=== PATIENT | female | born 1995 | race Caucasian/White ===

== ENCOUNTER 2017-05-04 09:25 | Emergency (ER) | payer OTHER ==
[2017-05-04] MEDS ORDERED: predniSONE 20 MG TABLET PO STA (09:56)
[2017-05-04] MEDS ORDERED: ALBUTEROL NEB 2.5 MG/3 ML INH STA (09:57)
--- NOTE | 2017-05-04 09:59 | ED Physician Documentation ---
History of Present Illness - Stated complaint Stated Complaint: SOA/CONGESTION - Chief complaint Chief Complaint: Resp - Additonal information Additional information: hx from pt 21 f asthjmatic was sick with URI sx a week or two ago got better now severe cough and soa not relieved by freq MDI use does not have a spacer no fever chills mylagias post tussive emesis no travel no leg edema sick contacts at school denies preg Review of Systems Constitutional: denies: Fever, Chills, Myalgias Respiratory: reports: Dyspnea, Cough, Wheezing GI: reports: Vomiting (post tussive) : denies: Now EGA (denies) Endocrine: denies: Easy bruising / bleeding Immunocompromised: denies: Immunocompromised PD PAST MEDICAL HISTORY - Past Medical History Past Medical History: Yes Cardiovascular: None Respiratory: Asthma Neuro: None Endocrine/Autoimmune: None GI: None 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 : None HEENT: None Psych: None Musculoskeletal: None Derm: None - Past Surgical History Past Surgical History: Yes HEENT: Myringotomy (tubes) - Present Medications Home Medications: Ambulatory Orders Medication Instructions Recorded Confirmed Albuterol 1 puffs PO Q4H 11/12/15 05/04/17 Norgestimate-Ethinyl Estradiol 1 tab PO DAILY 11/12/15 05/04/17 [Trinessa Lo Tablet] Benzonatate [Tessalon] 100 mg PO TID PRN #20 capsule 05/04/17 Clobetasol Propionate/Emoll 1 applic TD PRN PRN 05/04/17 05/04/17 [Clobetasol Emollient 0.05% Crm] Triamcinolone 0.5% Cream [Kenalog 15 applic TOP PRN PRN 05/04/17 05/04/17 0.5% Cream] guaiFENesin/DEXTROMETHORPHAN 10 ml PO Q6H PRN #120 ml 05/04/17 [Robitussin Dm] predniSONE [Deltasone] 60 mg PO DAILY 5 Days tablet 05/04/17 - Allergies Allergies/Adverse Reactions: Allergies Allergy/AdvReac Type Severity Reaction Status Date / Time No Known Drug Allergies Allergy Verified 05/04/17 09:40 - Social History Does the pt smoke?: No Smoking Status: Never smoker Does the pt drink ETOH?: No Does the pt have substance abuse?: No - Immunizations Immunizations are current?: Yes PD ED PE NORMAL - Vitals Vital signs reviewed: Yes - General General: Alert and oriented X 3 - HEENT HEENT: PERRL, Ears normal, Moist mucous membranes, Pharynx benign - Neck Neck: Supple, no meningeal sign - Cardiac Cardiac: RRR - Respiratory Respiratory: Other (decreased oneyda) - Abdomen Abdomen: Soft, Non tender - Derm Derm: Normal color - Extremities Extremities: No edema - Neuro Neuro: Alert and oriented X 3 - Psych Psych: Normal mood Results - Vitals Vitals: Vital Signs - 24 hr 05/04/17 05/04/17 09:31 10:21 Temperature 36.5 C Heart Rate 99 85 Respiratory 16 16 Rate Blood Pressure 124/87 H O2 Saturation 95 Oxygen O2 Source Room air - Labs Labs: Laboratory Tests 05/04/17 09:55 Influenza A (Rapid) Negative Influenza B (Rapid) Negative Influenza Types A,B Ag - - Rads (name of study) CXR Radiology: See rad report (neg) PD MEDICAL DECISION MAKING - ED course ED course: neg CXR neg flu will dc with spacer to assist MDI, steroids, tessalon and lily DM Departure - Departure Disposition: 01 Home, Self Care Clinical Impression: Bronchitis Asthma Qualifiers: Asthma severity: unspecified severity Asthma persistence: unspecified Asthma complication type: with acute exacerbation Qualified Code(s): J45.901 - Unspecified asthma with (acute) exacerbation Condition: Good Instructions: INHALER, Bronchodilator, ED Bronchitis Asthmatic Follow-Up: ARETHA HENSON [Primary Care Provider] - Prescriptions: Benzonatate [Tessalon] 100 mg PO TID PRN #20 capsule PRN Reason: to ease cough guaiFENesin/DEXTROMETHORPHAN [Robitussin Dm] 10 ml PO Q6H PRN #120 ml PRN Reason: Cough predniSONE [Deltasone] 60 mg PO DAILY 5 Days tablet Comments: The chest xray did not show pneumonia And the influenza test was negative So you don't need antibiotics or tamiflu But I did prescribed steroids to help ease your asthma as well as cough medications. Please use the spacer with your inhaler - it will help get more medication into your lungs Forms: Activity restrictions
[2017-05-04] MEDS ORDERED: ALBUTEROL NEB 2.5 MG/3 ML INH ONE (10:13)
[2017-05-04] MEDS ORDERED: predniSONE 20 MG TABLET ONE ×2 (10:18→10:34)
--- NOTE | 2017-05-04 10:20 | XRAY Preliminary Report ---
Exam: XR Chest 2 View PA/LAT IMPRESSION: No acute radiographic cardiopulmonary process [facility] SITE ID: [id number]
--- NOTE | 2017-05-04 10:23 | XRAY Report ---
EXAM: CHEST RADIOGRAPHY EXAM DATE: 05/04/2017 09:59 AM. CLINICAL HISTORY: Cough soa. COMPARISON: Chest radiograph 09/20/2014. TECHNIQUE: 2 views. FINDINGS: Lungs/Pleura: No focal opacities evident. No pleural effusion. No pneumothorax. Normal volumes. Mediastinum: Stable Other: None. IMPRESSION: No acute radiographic cardiopulmonary process [facility] Referring Provider Line: [phone] SITE ID: [id number]
[2017-05-04 11:14] VITALS: BP 143/84
== END 2017-05-04 11:28 | disposition home or self-care (01) ==
LOC: ED 09:25
DX: J45.901 Unspecified asthma with (acute) exacerbation (principal)
CPT/HCPCS: 71020; 87275; 87276; 94640; 94664; 99283; J7512; J7613

== ENCOUNTER 2020-04-14 08:43 | Emergency (ER) | payer BC, OTHER ==
[2020-04-14] MEDS ORDERED: PROPARACAINE 0.5% OPHTH DROPS 15 ML LEFTEYE STA (09:28)
--- NOTE | 2020-04-14 10:41 | ED Physician Documentation ---
History of Present Illness - Stated complaint Stated Complaint: LT EYE PAIN - Chief complaint Chief Complaint: Heent - History obtained from History obtained from: Patient - Additonal information Additional information: Patient comes emergency department complaining of left eye pain for the last several days. She states she wears contacts which are changed out monthly, but that the smoke is really been bothering her eyes. She states she actually did not wear her contacts for a few days, but then put them in yesterday while at work. She states she began to have pain in her left eye that just got worse and worse and that she finally had to take the contact lenses out. She has noticed redness and slight bit of mucus and some extra tearing, but no purulent drainage. She states her vision is somewhat blurred compared to the right side. Patient states she has had many eye infections since she is worn contacts and that this is similar. No other complaints at this time. No trauma. No history of glaucoma. Review of Systems Ten Systems: 10 systems reviewed and negative Constitutional: reports: Reviewed and negative Eyes: reports: Photophobia, Discharge, Irritation, Other (Blurred vision left eye) Ears: reports: Reviewed and negative Nose: reports: Reviewed and negative Throat: reports: Reviewed and negative Cardiac: reports: Reviewed and negative Respiratory: reports: Reviewed and negative GI: reports: Reviewed and negative : reports: Reviewed and negative Skin: reports: Reviewed and negative Musculoskeletal: reports: Reviewed and negative Neurologic: reports: Reviewed and negative Psychiatric: reports: Reviewed and negative Endocrine: reports: Reviewed and negative Immunocompromised: reports: Reviewed and negative PD PAST MEDICAL HISTORY - Past Medical History Past Medical History: Yes Cardiovascular: None Respiratory: Asthma Endocrine/Autoimmune: None GI: None 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 : None HEENT: None Psych: None Musculoskeletal: None Derm: None - Past Surgical History Past Surgical History: Yes HEENT: Myringotomy (tubes) - Present Medications Home Medications: Ambulatory Orders Medication Instructions Recorded Confirmed Albuterol 1 puffs PO Q4H 11/12/15 05/04/17 Norgestimate-Ethinyl Estradiol 1 tab PO DAILY 11/12/15 05/04/17 [Trinessa Lo Tablet] Albuterol Sulfate [Proair Hfa 2 puffs INH Q4H PRN #1 inhaler 05/04/17 Inhaler] Benzonatate [Tessalon] 100 mg PO TID PRN #20 capsule 05/04/17 Clobetasol Propionate/Emoll 1 applic TD PRN PRN 05/04/17 05/04/17 [Clobetasol Emollient 0.05% Crm] Triamcinolone 0.5% Cream [Kenalog 15 applic TOP PRN PRN 05/04/17 05/04/17 0.5% Cream] guaiFENesin/DEXTROMETHORPHAN 10 ml PO Q6H PRN #120 ml 05/04/17 [Robitussin Dm] predniSONE [Deltasone] 60 mg PO DAILY 5 Days tablet 05/04/17 Gentamicin 0.3% Ophth Drops 5 ml OP TID 7 Days #1 bottle 04/14/20 [Garamycin] - Allergies Allergies/Adverse Reactions: Allergies Allergy/AdvReac Type Severity Reaction Status Date / Time plastic bandaids Allergy Unknown Uncoded 04/14/20 09:01 - Social History Does the pt smoke?: No Smoking Status: Never smoker Does the pt drink ETOH?: No Does the pt have substance abuse?: Yes Substance Use and Type: Marijuana - Immunizations Immunizations are current?: Yes PD ED PE NORMAL - Vitals Vital signs reviewed: Yes - General General: Alert and oriented X 3, No acute distress - HEENT HEENT: Atraumatic, PERRL, EOMI, Moist mucous membranes, Other (Conjunctival injection left eye. Fluorescein exam reveals no corneal defects.) - Neck Neck: Supple, no meningeal sign - Respiratory Respiratory: No respiratory distress - Derm Derm: Warm and dry - Extremities Extremities: No deformity - Neuro Neuro: Alert and oriented X 3 - Psych Psych: Normal mood, Normal affect Results - Vitals Vitals: Vital Signs - 24 hr 04/14/20 08:51 Temperature 36.4 C L Heart Rate 63 Respiratory 16 Rate Blood Pressure 149/82 H O2 Saturation 98 Oxygen O2 Source Room air PD MEDICAL DECISION MAKING - ED course Complexity details: considered differential, d/w patient ED course: I discussed with the patient that her symptoms and findings are consistent with cocked contact lens related conjunctivitis. As such, the patient will need to get rid of the left contact and get a new pair. She will also need to be on topical antibiotics. 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 Please take the antibiotics as directed, until gone. Do not use contact lenses until your eye is completely back to normal
[2020-04-14 10:58] VITALS: BP 138/85
== END 2020-04-14 10:58 | disposition home or self-care (01) ==
LOC: ED 08:43
DX: H10.32 Unspecified acute conjunctivitis, left eye (principal)
CPT/HCPCS: 99282; 99284; J3490

== ENCOUNTER 2020-04-21 08:21 | Outpatient (CLI) | payer BC | END 2020-04-21 08:22 | disposition critical access hospital (66) | LOC: EMS 08:21 | PROVIDERS: ATTEND Surgery | DX: R55 Syncope and collapse (principal); R51 Headache; R11.0 Nausea | CPT/HCPCS: A0425; A0429 ==

== ENCOUNTER 2020-04-21 08:59 | Emergency (ER) | payer OTHER, BC ==
--- NOTE | 2020-04-21 09:11 | ED Physician Documentation ---
PD HPI SYNCOPE - Stated complaint Stated Complaint: GLF - Chief complaint Chief Complaint: Neuro - History obtained from History obtained from: Patient - History of Present Illness Witnessed: Witnessed Timing - onset: Today Duration: Seconds (10) Preceding symptoms: Other (dizziness) Associated symptoms: Headache, Nausea / vomiting Contributing factors: Decreased PO intake Injury occurred: Fell, Head injury. 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 She vomited 5 times following that and she is brought to the hospital by ambulance. She denies any specific weakness or numbness. Review of Systems Constitutional: denies: Fever, Chills, Myalgias Eyes: denies: Decreased vision Ears: denies: Ear pain Nose: denies: Rhinorrhea / runny nose, Congestion Throat: denies: Sore throat Cardiac: denies: Chest pain / pressure, Palpitations Respiratory: denies: Dyspnea, Cough GI: reports: Nausea, Vomiting. denies: Abdominal Pain : denies: Dysuria, Frequency Skin: denies: Rash Musculoskeletal: denies: Neck pain, Back pain, Extremity pain Neurologic: reports: Syncope, Headache, Head injury, LOC. 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 : None HEENT: None Psych: None Musculoskeletal: None Derm: None - Past Surgical History Past Surgical History: Yes HEENT: Myringotomy (tubes) - Present Medications Home Medications: Ambulatory Orders Medication Instructions Recorded Confirmed Multivitamin [Multiple Vitamins] 1 each PO 04/21/20 - Allergies Allergies/Adverse Reactions: Allergies Allergy/AdvReac Type Severity Reaction Status Date / Time plastic bandaids Allergy Unknown Uncoded 04/21/20 09:05 - Social History Does the pt smoke?: No Smoking Status: Never smoker Does the pt drink ETOH?: No Does the pt have substance abuse?: No - Immunizations Immunizations are current?: Yes PD ED PE NORMAL - Vitals Vital signs reviewed: Yes (hypertensive ) - General General: Alert and oriented X 3, No acute distress, Well developed/nourished - HEENT HEENT: PERRL, EOMI, Ears normal, Other (There is tenderness to the occiput on the left mild without crepitance or stepoff) - Neck Neck: Supple, no meningeal sign, No bony TTP - Cardiac Cardiac: RRR, No murmur - Respiratory Respiratory: No respiratory distress, Clear bilaterally - Abdomen Abdomen: Normal bowel sounds, Soft, Non tender, Non distended, No organomegaly - Back Back: No CVA TTP, No spinal TTP - Derm Derm: Normal color, Warm and dry, No rash - Extremities Extremities: No deformity, No edema - Neuro Neuro: Alert and oriented X 3, wholesale manager 2-12 intact, No motor deficit, No sensory deficit, Normal speech Eye Opening: Spontaneous Motor: Obeys Commands Verbal: Oriented GCS Score: 15 - Psych Psych: Normal mood, Normal affect Results - Vitals Vitals: Vital Signs - 24 hr 04/21/20 04/21/20 04/21/20 09:02 09:05 09:25 Temperature 36.5 C Heart Rate 60 65 64 Respiratory 18 16 16 Rate Blood Pressure 141/106 H 137/93 H 137/93 H O2 Saturation 99 99 99 04/21/20 04/21/20 04/21/20 09:35 10:30 11:00 Temperature Heart Rate 65 64 60 Respiratory 16 21 18 Rate Blood Pressure 118/83 H 113/87 H 126/78 O2 Saturation 99 100 98 04/21/20 04/21/20 11:30 12:51 Temperature 37.1 C Heart Rate 68 73 Respiratory 17 18 Rate Blood Pressure 126/78 131/85 H O2 Saturation 99 100 Oxygen O2 Source Room air - EKG (time done) 0909 Rate: Rate (enter#) (55) Rhythm: NSR QRS: LVH Compare to prior EKG: Changed from prior EKG (SPT 09-20-2014 the repolarization abnormality seen previously is now resolved. ) Computer interpretation: Agree with computer - Labs Labs: Laboratory Tests 04/21/20 04/21/20 04/21/20 09:16 09:16 09:16 WBC 5.8 RBC 3.93 L Hgb 11.9 L Hct 35.6 L MCV 90.6 MCH 30.3 MCHC 33.4 RDW 13.3 Plt Count 210 MPV 10.0 Neut # (Auto) 3.0 Lymph # (Auto) 2.0 Teller # (Auto) 0.4 Eos # (Auto) 0.4 Baso # (Auto) 0.1 Absolute Nucleated RBC 0.00 Nucleated RBC % 0.0 D-Dimer Sodium 137 Potassium 4.0 Chloride 104 Carbon Dioxide 25 Anion Gap 8.0 BUN 9 Creatinine 0.5 Estimated GFR (MDRD) 150 Glucose 94 Calcium 9.0 Total Bilirubin 1.0 AST 19 ALT 14 Alkaline Phosphatase 52 Troponin I High Sens < 2.3 L Total Protein 7.1 Albumin 4.1 Globulin 3.0 Albumin/Globulin Ratio 1.4 Lipase 24 Urine Color Urine Clarity Urine pH Ur Specific Rusk Urine Protein Urine Glucose (UA) Urine Ketones Urine Occult Blood Urine Nitrite Urine Bilirubin Urine Urobilinogen Ur Leukocyte Esterase Ur Microscopic Review Urine Culture Comments Urine HCG, Qual 04/21/20 04/21/20 04/21/20 09:16 10:30 10:30 WBC RBC Hgb Hct MCV MCH MCHC RDW Plt Count MPV Neut # (Auto) Lymph # (Auto) Teller # (Auto) Eos # (Auto) Baso # (Auto) Absolute Nucleated RBC Nucleated RBC % D-Dimer 221.9 Sodium Potassium Chloride Carbon Dioxide Anion Gap BUN Creatinine Estimated GFR (MDRD) Glucose Calcium Total Bilirubin AST ALT Alkaline Phosphatase Troponin I High Sens Total Protein Albumin Globulin Albumin/Globulin Ratio Lipase Urine Color YELLOW Urine Clarity CLEAR Urine pH 6.0 Ur Specific [place] 1.025 1.025 Urine Protein NEGATIVE Urine Glucose (UA) NEGATIVE Urine Ketones 15 H Urine Occult Blood NEGATIVE Urine Nitrite NEGATIVE Urine Bilirubin NEGATIVE Urine Urobilinogen 0.2 (NORMAL) Ur Leukocyte Esterase NEGATIVE Ur Microscopic Review NOT INDICATED Urine Culture Comments NOT INDICATED Urine HCG, Qual NEGATIVE - Rads (name of study) CT head without Radiology: Prelim report reviewed (Impression: No acute finding.), EMP read indepedently, See rad report X-ray Radiology: Prelim report reviewed (Impression: No acute cardiopulmonary pathology.), EMP read indepedently, See rad report Procedures - IVC sono (time) 0910 Bedside IVC sono: IVC measures (cm) (1.77), Euvolemia PD MEDICAL DECISION MAKING - ED course Complexity details: reviewed results, re-evaluated patient, considered differential, d/w patient ED course: 24-year-old female with a syncopal episode at work today has fallen and hit her head had some nausea and vomiting associated with concussion. She is has a negative test her blood work urinalysis are all unremarkable CT scan of the head is unremarkable electrocardiogram shows sinus rhythm and normal intervals. Departure - Departure Disposition: 01 Home, Self Care Clinical Impression: Syncope Qualifiers: Syncope type: unspecified Qualified Code(s): R55 - Syncope and collapse Concussion Qualifiers: Encounter type: initial encounter Loss of consciousness presence/duration: with LOC of 30 min or less Qualified Code(s): S06.0X1A - Concussion with loss of consciousness of 30 minutes or less, initial encounter Condition: Stable Instructions: ED Concussion, ED Syncope Vasovagal Follow-Up: [facility] [Provider Group] Forms: Activity restrictions Discharge Date/Time: 04/21/20 13:15
[2020-04-21 09:27] LABS: BASOPHILS # (AUTO) 0.1 10^3/uL (0.0-0.1); BASOPHILS % (AUTO) 0.9 %; EOSINOPHILS # (AUTO) 0.4 10^3/uL (0.0-0.7); EOSINOPHILS % (AUTO) 7.4 %; HGB - HEMOGLOBIN 11.9 g/dL (12.0-16.0); LYMPHOCYTES % (AUTO) 33.7 %; MEAN CORPUSCULAR HEMOGLOBIN 30.3 pg (27.0-31.0); MEAN CORPUSCULAR HGB CONC 33.4 g/dL (32.0-36.0); MEAN CORPUSCULAR VOLUME 90.6 fL (81.0-99.0); MONOCYTES # (AUTO) 0.4 10^3/uL (0.0-1.0); MONOCYTES % (AUTO) 6.7 %; NEUTROPHILS % (AUTO) 51.1 %; PLT - PLATELET COUNT 210 10^3/uL (130-450); RED BLOOD COUNT 3.93 10^6/uL (4.20-5.40); RED CELL DISTRIBUTION WIDTH 13.3 % (12.0-15.0); WHITE BLOOD COUNT 5.8 x10^3/uL (4.8-10.8)
[2020-04-21 09:41] LABS: ALBUMIN 4.1 g/dL (3.2-5.5); ALBUMIN/GLOBULIN RATIO 1.4 (1.0-2.2); CREATININE 0.5 mg/dL (0.4-1.0); TOTAL PROTEIN 7.1 g/dL (6.7-8.2)
--- NOTE | 2020-04-21 09:47 | XRAY Report ---
PROCEDURE: Chest 1 View X-Ray INDICATIONS: syncope TECHNIQUE: One view of the chest was acquired. COMPARISON: 05/04/2017 FINDINGS: Surgical changes and devices: None. Lungs and pleura: No pleural effusions or pneumothorax. Lungs are clear. Mediastinum: Mediastinal contours appear normal. Heart size is normal. Bones and chest wall: No suspicious bony lesions. Overlying soft tissues appear unremarkable. IMPRESSION: No acute cardiopulmonary pathology. Reviewed by: Patrick Watson MD on 04/21/2020 9:46 AM PDT Approved by: Patrick Watson MD on 04/21/2020 9:46 AM PDT Station ID: [id number]
--- NOTE | 2020-04-21 10:16 | CT Report ---
PROCEDURE: HEAD WO INDICATIONS: Syncope, concussion, vomiting TECHNIQUE: Noncontrast 4.5 mm thick angled axial sections acquired from the foramen magnum to the vertex. For r adiation dose reduction, the following was used: automated exposure control, adjustment of mA and/or kV according to patient size. COMPARISON: None. FINDINGS: Image quality: Excellent. CSF spaces: Basal cisterns are patent. No extra-axial fluid collections. Ventricles are normal in size and shape. Brain: No midline shift. No intracranial masses or hemorrhage. Colon-white matter interface is norm al. Skull and face: Calvarium and visualized facial bones are intact, without suspicious lesions. Sinuses: Visualized sinuses and mastoids are clear. IMPRESSION: No acute finding. Reviewed by: Cristian Tiwari MD on 04/21/2020 10:15 AM PDT Approved by: Cristian Tiwari MD on 04/21/2020 10:15 AM PDT Station ID: [id number]
[2020-04-21 10:37] LABS: BILIRUBIN,URINE NEGATIVE (NEGATIVE); GLUCOSE, URINE (UA) NEGATIVE (NEGATIVE); KETONES,URINE (UA) 15 mg/dL (NEGATIVE); LEUKOCYTE ESTERASE, URINE NEGATIVE (NEGATIVE); NITRITE,URINE NEGATIVE (NEGATIVE); OCCULT BLOOD,URINE NEGATIVE (NEGATIVE); PROTEIN,URINE NEGATIVE (NEGATIVE); UROBILINOGEN,URINE 0.2 (NORMAL) E.U./dL (NORMAL)
[2020-04-21 10:42] LABS: CLARITY,URINE CLEAR (CLEAR)
[2020-04-21 10:43] LABS: HCG UR QUAL NEGATIVE
[2020-04-21 12:52] VITALS: BP 131/85
== END 2020-04-21 13:15 | disposition home or self-care (01) ==
LOC: ED 08:59
DX: R55 Syncope and collapse (principal); S06.0X1A Concussion with loss of consciousness of 30 minutes or less, initial encounter; W18.30XA Fall on same level, unspecified, initial encounter; Y93.G9 Activity, other involving cooking and grilling; Y99.0 Civilian activity done for income or pay
CPT/HCPCS: 1040M; 36415; 70450; 71045; 80053; 81001; 81003; 81025; 83690; 84484; 85025; 85379; 87086; 93005; 99284

== ENCOUNTER 2022-10-14 09:15 | Emergency (ER) | payer BC ==
--- NOTE | 2022-10-14 09:32 | ED Physician Documentation ---
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 [place] okay yesterday with normal intake. Has had mild congesiton/cough fro couple of days. Presumes head cold. Had still been taking food/fluids and normal activity.), Just stood up Injury occurred: Head injury. No: Neck injury, Bit tongue Similar symptoms before: Has not had sx before Recently seen: Not recently seen Review of Systems Constitutional: denies: Fever, Chills Eyes: denies: Loss of vision, Photophobia Nose: reports: Rhinorrhea / runny nose, Congestion Throat: denies: Sore throat Respiratory: reports: Cough Skin: reports: Laceration (s) Musculoskeletal: denies: Neck pain, Back pain Neurologic: reports: Headache (after falling). denies: Focal weakness, Numbness, Altered mental status PD PAST MEDICAL HISTORY - Past Medical History Cardiovascular: None Respiratory: Asthma Neuro: None Endocrine/Autoimmune: None GI: None [employer]: None : None HEENT: None Psych: None Musculoskeletal: None Derm: None - Past Surgical History Past Surgical History: Yes HEENT: Myringotomy (tubes) - Present Medications Home Medications: Ambulatory Orders Medication Instructions Recorded Confirmed Multivitamin [Multiple Vitamins] 1 each PO 04/21/20 - Allergies Allergies/Adverse Reactions: Allergies Allergy/AdvReac Type Severity Reaction Status Date / Time plastic bandaids Allergy Unknown Uncoded 10/14/22 09:24 - Social History Does the pt smoke?: No Smoking Status: Never smoker Does the pt drink ETOH?: No Does the pt have substance abuse?: No - Immunizations Immunizations are current?: Yes PD ED PE NORMAL - Vitals Vital signs reviewed: Yes - General General: Alert and oriented X 3, No acute distress, Well developed/nourished - HEENT HEENT: No: Atraumatic (3 cm laceration with minimal bleeding now. No FB. Edges are crisply demarcated. 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 operator 2-12 intact, No motor deficit, Normal speech Eye Opening: Spontaneous Motor: Obeys Commands Verbal: Oriented GCS Score: 15 Results - Vitals Vitals: Vital Signs - 24 hr 10/14/22 10/14/22 10/14/22 09:19 09:40 10:48 Temperature 36.6 C Heart Rate 68 74 70 Respiratory 16 18 18 Rate Blood Pressure 135/100 H 143/97 H 135/75 H O2 Saturation 97 99 99 10/14/22 11:12 Temperature Heart Rate 65 Respiratory 18 Rate Blood Pressure 135/90 H O2 Saturation 98 Oxygen O2 Source Room air - Tele (time rhythm occurred) heart monitor in ER Telemetry / rhythm strip: Rate (68), NSR - Labs Labs: Laboratory Tests 10/14/22 10/14/22 10/14/22 10:01 10:01 10:01 WBC 5.6 RBC 3.92 L Hgb 11.2 L Hct 35.1 L MCV 89.5 MCH 28.6 MCHC 31.9 L RDW 14.6 Plt Count 244 MPV 9.7 Neut # (Auto) 3.8 Lymph # (Auto) 0.7 L [place] # (Auto) 0.6 Eos # (Auto) 0.3 Baso # (Auto) 0.0 Absolute Nucleated RBC 0.00 Nucleated RBC % 0.0 Sodium 137 Potassium 3.9 Chloride 105 Carbon Dioxide 26 Anion Gap 6.0 BUN 8 Creatinine 0.6 Estimated GFR (MDRD) 120 Glucose 90 Calcium 8.6 Total Bilirubin 0.3 AST 20 ALT 16 Alkaline Phosphatase 51 Total Protein 6.9 Albumin 3.7 Globulin 3.2 Albumin/Globulin Ratio 1.2 Lipase 35 Serum HCG, Qual NEGATIVE - Rads (name of study) head CT Relevant Findings:: Prelim report reviewed, EMP independent interpretation of test (no ICH nor fractures. No acute findings. ), See rad report Procedures - Laceration (location) scalp occipital Length in cm: 3 Wound type: Linear, Into subcut fat Anesthesia: Marcaine 0.5% Wound preparation: Wound explored, To the base Skin layer closure: Juanita (7) Other: Patient tolerated well, No complications, Tetanus UTD PD Medical Decision Making - ED course Complexity details: reviewed results, considered differential (syncopal episode of unclear cause. Recent URI but not felt dehydrated. No preceding headache. Has scalp lac so consider concussive symptoms with more simple slip and fall. recent URI so consider poor vascular autoregulation with standing up this morning. ), d/w patient Reviewed Lab Results: Heart rhythm normal on monitor. Unclear the cause of the fainting. Seems okay now and has not had exertional pain/dyspnea/etc. Labs including glucose, lytes, blood count and test are normal upon evaluation. Departure - Departure Disposition: 01 Home, Self Care Clinical Impression: Episode of syncope, Occipital scalp laceration, Mild concussion, Fall from standing Condition: Stable Record reviewed to determine appropriate education?: Yes Instructions: ED Laceration Scalp Stitch Or Stap, ED Fainting Unkn Cause Comments: It is unclear the cause of your fainting episode. Your heart rate and blood pressure are good here. Your basic blood tests are showing normal kidney function, sugar, electrolytes and negative test. Your blood count shows mild anemia but at the same level as your prior blood tests on record here. Consider most likely then just a improper response of your blood vessels and bl ood pressure related to the current head cold etc. No other more significant cause at this time. Stable hydrated as you normally do. Your head CT did not show any fractures, bleeding, tumors or swelling. With the headache and some vomiting after the injury, you could say this is a mild concussion. Take it easy for the next couple of days. Nothing to vigorous. If you are feeling well at that point then back to normal activity. If you are still having some symptoms then light progression of activity over several days to week. It is okay to wash and shower. Clean off the wound twice a day with soap and water, or peroxide and water. Apply some antibiotic ointment to it to keep it moist. Also to watch for signs of infection such as purulence, redness or increasing pain. Return to your primary care or the ER at the specified time for suture removal. Staple removal in 8 to 9 days. Tylenol or ibuprofen or both if needed for pains. Discharge Date/Time: 10/14/22 11:54
[2022-10-14] MEDS ORDERED: ONDANSETRON 4 MG/2 ML VIAL IVP STA (09:50)
[2022-10-14] MEDS ORDERED: KETOROLAC 15 MG/ML VIAL IVP STA (09:50)
[2022-10-14] MEDS ORDERED: HYDROmorphone 0.5 MG/0.5 ML SYRINGE IVP STA (09:50)
[2022-10-14] MEDS ORDERED: SODIUM CHLORIDE 0.9% 1,000 ML IV STA (09:51)
[2022-10-14 10:13] LABS: BASOPHILS % (AUTO) 0.7 %; EOSINOPHILS # (AUTO) 0.3 10^3/uL (0.0-0.7); EOSINOPHILS % (AUTO) 5.9 %; HCT - HEMATOCRIT 35.1 % (37.0-47.0); HGB - HEMOGLOBIN 11.2 g/dL (12.0-16.0); LYMPHOCYTES # (AUTO) 0.7 10^3/uL (1.5-3.5); LYMPHOCYTES % (AUTO) 13.3 %; MEAN CORPUSCULAR HEMOGLOBIN 28.6 pg (27.0-31.0); MEAN CORPUSCULAR HGB CONC 31.9 g/dL (32.0-36.0); MEAN CORPUSCULAR VOLUME 89.5 fL (81.0-99.0); MEAN PLATELET VOLUME 9.7 fL (7.9-10.8); MONOCYTES # (AUTO) 0.6 10^3/uL (0.0-1.0); MONOCYTES % (AUTO) 11.4 %; NEUTROPHILS # (AUTO) 3.8 10^3/uL (1.5-6.6); NEUTROPHILS % (AUTO) 68.5 %; PLT - PLATELET COUNT 244 10^3/uL (130-450); RED BLOOD COUNT 3.92 10^6/uL (4.20-5.40); RED CELL DISTRIBUTION WIDTH 14.6 % (12.0-15.0); WHITE BLOOD COUNT 5.6 x10^3/uL (4.8-10.8)
[2022-10-14 10:51] LABS: ALBUMIN 3.7 g/dL (3.2-5.5); ALBUMIN/GLOBULIN RATIO 1.2 (1.0-2.2); BILIRUBIN,TOTAL 0.3 mg/dL (0.2-1.0); CALCIUM 8.6 mg/dL (8.5-10.3); CREATININE 0.6 mg/dL (0.4-1.0); POTASSIUM 3.9 mmol/L (3.5-5.0); TOTAL PROTEIN 6.9 g/dL (6.7-8.2)
--- NOTE | 2022-10-14 10:58 | CT Report ---
PROCEDURE: HEAD WO INDICATIONS: fell/fainted; struck back of head, NG/vomiting TECHNIQUE: Noncontrast 4.5 mm thick angled axial sections acquired from the foramen magnum to the vertex. For r adiation dose reduction, the following was used: automated exposure control, adjustment of mA and/or kV according to patient size. COMPARISON: CT head 04/21/2020 FINDINGS: Image quality: Excellent. CSF spaces: Basal cisterns are patent. No extra-axial fluid collections. Ventricles are normal in size and shape. Brain: No midline shift. No intracranial masses or hemorrhage. Colon-white matter interface is norm al. Skull and face: Calvarium and visualized facial bones are intact, without suspicious lesions. Sinuses: Visualized sinuses and mastoids are clear. IMPRESSION: 1. No acute intracranial process. Reviewed by: Jennifer Palma MD on 10/14/2022 10:57 AM PDT Approved by: Jennifer Palma MD on 10/14/2022 10:57 AM PDT Station ID: [id number]
[2022-10-14 11:05] LABS: HCG,QUALITATIVE BLOOD NEGATIVE
[2022-10-14] MEDS ORDERED: HYDROmorphone 1 MG/ML CARPUJECT IVP STA (11:10)
[2022-10-14 11:13] VITALS: BP 135/90
== END 2022-10-14 11:54 | disposition home or self-care (01) ==
LOC: ED 09:15
DX: R55 Syncope and collapse (principal); S06.0X1A Concussion with loss of consciousness of 30 minutes or less, initial encounter; S01.01XA Laceration without foreign body of scalp, initial encounter; W18.39XA Other fall on same level, initial encounter; Y93.E8 Activity, other personal hygiene; Y92.002 Bathroom of unspecified non-institutional (private) residence as the place of occurrence of the external cause
CPT/HCPCS: 12002; 36415; 70450; 80053; 83690; 84703; 85025; 96374; 96375; 96376; 99283; 99284; J1170